=== PATIENT | male | born 1950 | race Caucasian/White ===

== ENCOUNTER → 2016-04-16 | Outpatient (CLI) | payer OTHER, BC | END | disposition home or self-care (01) | DX: M16.12 Unilateral primary osteoarthritis, left hip (principal); R26.2 Difficulty in walking, not elsewhere classified; M62.81 Muscle weakness (generalized); M25.652 Stiffness of left hip, not elsewhere classified | CPT/HCPCS: 97110 GP; 97150 GO; 97161 GP; 97165 GO; G8978 GP; G8979 GP; G8980 GP; G8987 GO; G8988 GO; G8989 GO ==

== ENCOUNTER 2016-05-07 09:44 | Inpatient (IN) | payer OTHER, BC ==
[~2016-05-07] VITALS: Ht 180.3 cm; Wt 94.8 kg
[~2016-05-07 09:44] MED LIST: BENICAR20 MG PO; BENICAR5 MG PO; CO Q-1010 MG PO; LO-DOSE ASPIRIN81 M2 PO; MULTI-DAY VITA1 EACH PO; PERCOCET 10/1 TABLET PO; TOPROL XL50 MG PO; VIAGRA100 MG PO; VITAMIN D-32000 UNI2 PO
[2016-05-07 11:51] VITALS: BP 125/80
[2016-05-07 17:00] LABS: HEMATOCRIT 41.5 % (38.0-50.0); MCV 88.3 FL (86-99); MEAN PLAT.VOLUME 10.9 uM^3 (9.0-12.4); PLATELET COUNT 187 K/uL (156-360); RBC DIS.WIDTH-CV 13.1 % (11.8-14.6); RBC DIS.WIDTH-SD 42.1 % (39-53); WHITE BLOOD COUNT 5.4 K/uL (4.1-10.2)
[2016-05-07 19:52] VITALS: BP 146/88
[2016-05-07 20:04] VITALS: BP 146/88
[2016-05-07 23:48] VITALS: BP 128/89
[2016-05-08 03:58] VITALS: BP 149/86
[2016-05-08 06:43] LABS: ANION GAP 8 MEQ/L (2-14); CHLORIDE 101 MEQ/L (99-109); GFR ESTIMATE (CALCULATED) > 59 mL/min/; GLUCOSE 130 mg/dL (70-99); POTASSIUM 4.6 MEQ/L (3.7-5.4); SAMPLE HEMOLYSIS CHECK 0; SAMPLE ICTERIC CHECK 0; SAMPLE LIPEMIA CHECK 0; SODIUM 135 MEQ/L (136-147); UREA NITROGEN (BUN) 14 mg/dL (9-23)
[2016-05-08 07:31] VITALS: BP 145/86
[2016-05-08 11:32] VITALS: BP 135/88
[2016-05-08 13:14] LABS: HEMATOCRIT 40.5 % (38.0-50.0)
[2016-05-08 16:02] VITALS: BP 145/90
[2016-05-08 19:42] VITALS: BP 140/93
[2016-05-08 23:13] VITALS: BP 163/87
[2016-05-09] VITALS (7 sets, daily range): BP systolic 120–152; BP diastolic 64–87
[2016-05-09 05:47] LABS: HEMATOCRIT 36.4 % (38.0-50.0); MCV 86.5 FL (86-99)
[2016-05-09 06:11] LABS: ANION GAP 10 MEQ/L (2-14); CHLORIDE 100 MEQ/L (99-109); GFR ESTIMATE (CALCULATED) > 59 mL/min/; GLUCOSE 115 mg/dL (70-99); POTASSIUM 4.2 MEQ/L (3.7-5.4); SAMPLE HEMOLYSIS CHECK 0; SAMPLE ICTERIC CHECK 0; SAMPLE LIPEMIA CHECK 0; SODIUM 134 MEQ/L (136-147); UREA NITROGEN (BUN) 16 mg/dL (9-23)
[2016-05-09 07:57] LABS: POINT-OF-CARE METER ID UU14188577
[2016-05-09 08:27] LABS: TROP-I INTERPRETATION NEGATIVE; TROPONIN-I < 0.01 ng/mL (0.0-0.30)
[2016-05-09] MEDS ORDERED: LOVENOX40 MG/0.4 SC (09:02)
[2016-05-09] MEDS ORDERED: CELECOXIB200 MG PO (09:02)
[2016-05-09] MEDS ORDERED: DOCUSATE SODIU100 MG PO (09:02)
[2016-05-09] MEDS ORDERED: HYDROCODON-ACE1 EAC7 PO (09:02)
[2016-05-09 18:40] LABS: TROP-I INTERPRETATION NEGATIVE; TROPONIN-I < 0.01 ng/mL (0.0-0.30)
[2016-05-10 00:41] LABS: TROP-I INTERPRETATION NEGATIVE; TROPONIN-I < 0.01 ng/mL (0.0-0.30)
[2016-05-10 07:30] VITALS: BP 150/74
[2016-05-10] MEDS ORDERED: CELECOXIB200 MG PO (08:35)
[2016-05-10 10:49] LABS: HEMATOCRIT 38.3 % (38.0-50.0); MCH 29.5 PG (29.0-34.0); MCHC 33.7 G/DL (30.0-36.0); MCV 87.4 FL (86-99); MEAN PLAT.VOLUME 11.2 uM^3 (9.0-12.4); PLATELET COUNT 209 K/uL (156-360); RBC DIS.WIDTH-CV 12.9 % (11.8-14.6); RBC DIS.WIDTH-SD 41.4 % (39-53); RED BLOOD COUNT 4.38 M/uL (4.00-5.50)
[2016-05-10 10:52] LABS: WHITE BLOOD COUNT 7.5 K/uL (4.1-10.2)
[2016-05-10 10:53] LABS: ANION GAP 12 MEQ/L (2-14); CHLORIDE 99 MEQ/L (99-109); SAMPLE HEMOLYSIS CHECK 2; SAMPLE ICTERIC CHECK 0; SAMPLE LIPEMIA CHECK 0; SODIUM 136 MEQ/L (136-147)
[2016-05-10 10:54] LABS: POTASSIUM 4.3 MEQ/L (3.7-5.4)
[2016-05-10 10:59] LABS: GFR ESTIMATE (CALCULATED) > 59 mL/min/; GLUCOSE 141 mg/dL (70-99); UREA NITROGEN (BUN) 15 mg/dL (9-23)
== END 2016-05-10 12:35 | disposition home health service (06) | DRG 470 ==
LOC: 2SOUTH → 3EAST 11:03 → 2SOUTH 11:03 → 3EAST 19:32
PROVIDERS: Hospitalist; Nurse Practitioner Family; Orthopaedic Surgery; Physician Assistant
PROC: 0SRB02A Replacement of Left Hip Joint with Metal on Polyethylene Synthetic Substitute, Uncemented, Open Approach (ICD-10-PCS; principal; 2016-05-07)
DX: M16.52 Unilateral post-traumatic osteoarthritis, left hip (principal); I95.81 Postprocedural hypotension; I10 Essential (primary) hypertension; E78.2 Mixed hyperlipidemia; I25.10 Atherosclerotic heart disease of native coronary artery without angina pectoris; J43.9 Emphysema, unspecified; F10.21 Alcohol dependence, in remission; K06.0 Gingival recession; Z95.1 Presence of aortocoronary bypass graft; Z79.82 Long term (current) use of aspirin
CPT/HCPCS: 70450; 71010; 71275; 73501; 80048; 82948; 84484; 85014; 85018; 85027; 93005; 94760; 94799; J0131; J0690; J1170; J1650; J2250; J7030; J7050

== ENCOUNTER 2016-09-27 00:33 | Emergency (ER) | payer OTHER, BC ==
[~2016-09-27] VITALS: Ht 180.3 cm; Wt 89.5 kg
[~2016-09-27 00:33] MED LIST changes: +CELECOXIB200 MG PO; +DOCUSATE SODIU100 MG PO; +HYDROCODON-ACE1 EAC7 PO; +LOVENOX40 MG/0.4 SC
[2016-09-27 01:13] LABS: HEMATOCRIT 44.7 % (38.0-50.0); MCHC 34.2 G/DL (30.0-36.0); MCV 84.8 FL (86-99); MEAN PLAT.VOLUME 10.5 uM^3 (9.0-12.4); PLATELET COUNT 258 K/uL (156-360); RBC DIS.WIDTH-CV 13.7 % (11.8-14.6); RBC DIS.WIDTH-SD 42.5 % (39-53); RED BLOOD COUNT 5.27 M/uL (4.00-5.50); WHITE BLOOD COUNT 7.1 K/uL (4.1-10.2)
[2016-09-27 01:23] LABS: CHLORIDE 107 mEq/L (99-109); POTASSIUM 3.7 mEq/L (3.7-5.4); SODIUM 140 mEq/L (136-147)
[2016-09-27 01:25] LABS: GLUCOSE 134 mg/dL (70-99)
[2016-09-27 01:27] LABS: ANION GAP 12 MEQ/L (2-14)
[2016-09-27 01:29] LABS: GFR ESTIMATE (CALCULATED) > 59 mL/min/
[2016-09-27 01:30] LABS: UREA NITROGEN (BUN) 17 mg/dL (9-23)
[2016-09-27] MEDS ORDERED: OXAYDO5 MG PO (02:07)
[2016-09-27 02:58] VITALS: BP 166/94
[2016-09-28] MEDS ORDERED: COLACE100 MG PO (06:12)
[2016-09-28] MEDS ORDERED: PERCOCET 5/31 TABLET PO (06:12)
[2016-09-28] MEDS ORDERED: FLOMAX0.4 MG PO (06:12)
[2016-09-28] MEDS ORDERED: CIPRO500 MG PO (06:12)
== END 2016-09-27 02:59 | disposition home or self-care (01) ==
LOC: EME 00:33
DX: N20.0 Calculus of kidney (principal); I10 Essential (primary) hypertension; Z95.1 Presence of aortocoronary bypass graft
CPT/HCPCS: 74176; 80048; 81003; 85027; 99281; 99284; J1885; J2270; J2405; J7030

== ENCOUNTER 2016-09-28 03:29 | Emergency (ER) | payer OTHER, BC ==
[~2016-09-28] VITALS: Ht 180.3 cm; Wt 89.7 kg
[~2016-09-28 03:29] MED LIST changes: +OXAYDO5 MG PO
[2016-09-28 04:49] LABS: CHLORIDE 101 mEq/L (99-109); SODIUM 135 mEq/L (136-147)
[2016-09-28 04:50] LABS: POTASSIUM 4.7 mEq/L (3.7-5.4)
[2016-09-28 04:51] LABS: GLUCOSE 111 mg/dL (70-99)
[2016-09-28 04:53] LABS: ANION GAP 8 MEQ/L (2-14); TOTAL BILIRUBIN 0.6 mg/dL (0.0-1.0)
[2016-09-28 04:55] LABS: ALKALINE PHOSPHATASE 108 IU/L (3-129); GFR ESTIMATE (CALCULATED) > 59 mL/min/
[2016-09-28 04:56] LABS: UREA NITROGEN (BUN) 16 mg/dL (9-23)
[2016-09-28 04:57] LABS: DIRECT BILIRUBIN 0.2 mg/dL (0.0-0.3)
[2016-09-28 04:58] LABS: LIPASE 27 U/L (1.0-51.0)
[2016-09-28 05:00] LABS: ADD MIUA? YES; BILIRUBIN NEGATIVE; BLOOD MODERATE; COLOR YELLOW ((YELLOW)); GLUCOSE (STRIP) NEGATIVE; KETONES NEGATIVE; LEUKOCYTES SMALL; NITRITE NEGATIVE; PROTEIN (STRIP) NEGATIVE; SPECIFIC GRAVITY 1.015 (1.000-1.030)
[2016-09-28 05:06] LABS: BACTERIA NONE SEEN /HPF; EPITHELIAL CELLS RARE /HPF; MUCUS TRACE /LPF; RED BLOOD CELLS TNTC /HPF (0-5); UCUL ADDED? YES; WHITE BLOOD CELLS 30-40 /HPF (0-5)
[2016-09-28 05:08] LABS: HEMATOCRIT 45.6 % (38.0-50.0); MCH 29.1 PG (29.0-34.0); MCV 85.6 FL (86-99); MEAN PLAT.VOLUME 10.8 uM^3 (9.0-12.4); PLATELET COUNT 267 K/uL (156-360); RBC DIS.WIDTH-CV 13.7 % (11.8-14.6); RBC DIS.WIDTH-SD 42.4 % (39-53); RED BLOOD COUNT 5.33 M/uL (4.00-5.50); WHITE BLOOD COUNT 8.4 K/uL (4.1-10.2)
[2016-09-28] MEDS ORDERED: CIPRO500 MG PO (06:12)
[2016-09-28] MEDS ORDERED: COLACE100 MG PO (06:12)
[2016-09-28] MEDS ORDERED: PERCOCET 5/31 TABLET PO (06:12)
[2016-09-28] MEDS ORDERED: FLOMAX0.4 MG PO (06:12)
[2016-09-28 06:43] VITALS: BP 147/88
== END 2016-09-28 06:53 | disposition home or self-care (01) ==
LOC: EME 03:29
PROVIDERS: Physician Assistant
DX: N20.1 Calculus of ureter (principal); N30.91 Cystitis, unspecified with hematuria; I10 Essential (primary) hypertension; Z87.442 Personal history of urinary calculi; Z95.1 Presence of aortocoronary bypass graft
CPT/HCPCS: 80048; 80076; 81003; 83690; 85027; 87077; 87086; 87186; 99281; 99285; J1885; J2270; J7030

== ENCOUNTER 2016-10-06 14:09 | Emergency (ER) | payer OTHER, BC ==
[~2016-10-06] VITALS: Ht 180.3 cm; Wt 88.8 kg
[~2016-10-06 14:09] MED LIST changes: +CIPRO500 MG PO; +COLACE100 MG PO; +FLOMAX0.4 MG PO; +PERCOCET 5/31 TABLET PO
[2016-10-06 14:57] LABS: HEMATOCRIT 46.5 % (38.0-50.0); MCH 28.8 PG (29.0-34.0); MCHC 33.5 G/DL (30.0-36.0); MCV 85.8 FL (86-99); MEAN PLAT.VOLUME 10.1 uM^3 (9.0-12.4); PLATELET COUNT 269 K/uL (156-360); RBC DIS.WIDTH-CV 13.3 % (11.8-14.6); RBC DIS.WIDTH-SD 41.9 % (39-53); RED BLOOD COUNT 5.42 M/uL (4.00-5.50); WHITE BLOOD COUNT 7.3 K/uL (4.1-10.2)
[2016-10-06 15:09] LABS: CHLORIDE 106 mEq/L (99-109); POTASSIUM 4.5 mEq/L (3.7-5.4); SODIUM 139 mEq/L (136-147)
[2016-10-06 15:11] LABS: GLUCOSE 118 mg/dL (70-99)
[2016-10-06 15:12] LABS: ANION GAP 8 MEQ/L (2-14)
[2016-10-06 15:14] LABS: GFR ESTIMATE (CALCULATED) > 59 mL/min/
[2016-10-06 15:15] LABS: UREA NITROGEN (BUN) 16 mg/dL (9-23)
[2016-10-06 15:20] LABS: TROP-I INTERPRETATION NEGATIVE; TROPONIN-I 0.03 ng/mL (0.0-0.30)
[2016-10-06] MEDS ORDERED: PREDNISONE20 MG PO (17:05)
[2016-10-06] MEDS ORDERED: ARTIFICIAL TEAR15 M1 BOTH EYES (17:05)
[2016-10-06 17:40] VITALS: BP 162/102
== END 2016-10-06 18:16 | disposition home or self-care (01) ==
LOC: EME 14:09
DX: G51.0 Bell's palsy (principal); R07.9 Chest pain, unspecified; E78.5 Hyperlipidemia, unspecified; I10 Essential (primary) hypertension; Z87.442 Personal history of urinary calculi; Z95.1 Presence of aortocoronary bypass graft
CPT/HCPCS: 70450; 71020; 80048; 84484; 85027; 93005; 99281; 99284